=== PATIENT | female | born 1985 | race Caucasian/White ===

== ENCOUNTER 2019-02-27 01:28 | Emergency (ER) | payer MEDICAID ==
[~2019-02-27] VITALS: Ht 162.6 cm; Wt 49.0 kg
[2019-02-27 01:36] VITALS: BP 118/79
--- NOTE | 2019-02-27 01:39 | NUR ---
PT AMBULATED TO BED
[2019-02-27] MEDS ORDERED: CEPHALEXIN 500 MG CAP PO ONE (01:45)
[2019-02-27] MEDS ORDERED: SULFAMETH/TRIMETH DS 800/160MG 1 TAB PO ONE (01:45)
[2019-02-27] MEDS ORDERED: IBUPROFEN 800 MG TAB PO ONE (01:45)
[2019-02-27] MEDS ORDERED: LIDOCAINE/EPI 1% 1:100000 20 ML VIAL INJ ONE (01:45)
--- NOTE | 2019-02-27 01:45 | NUR ---
33 YO F BIB SELF FROM STREET PRESENTS TO ED C/O LARGE ABSCESSES TO BILATERAL UPPER EXTREMETIES FROM INJECTING METH. PT STATES SHE NOTICED THE [facility]TH[facility] X 2 WEEKS AGO AND THEY HAVE GOTTEN PROGRESSIVELY MORE PAINFUL AND LARGER. LARGE, FIRM ABSCESS NOTED TO BILATERAL ANTECUBITAL REGIONS. REDNESS, NO DRAINAGE NOTED. PT DENIES FEVER/CHILLS, N/V. PT STATES SHE HAS BEEN USING FRIEND'S ABX AND [facility]. -- PT AWAKE, A/O X 4, CALM, COOPERATIVE. ANSWERING QUESTIONS APPROPRIATELY. BEHAVIOR AGE APPROPRIATE. -- SKIN PINK, WARM, DRY. BREATHING EVEN, UNLABORED. PMH-- DENIES
--- NOTE | 2019-02-27 02:10 | NUR ---
DR. CANTU PERFORMING INCISION AND DRAINAGE PROCEDURE AT BEDSIDE.
--- NOTE | 2019-02-27 02:55 | NUR ---
Patient given written and verbal discharge instructions and verbalizes understanding. Given copies of tests performed during visit. Patient is awake, alert and oriented. Ambulatory with steady gait. Refuses offer of assisted placement. Given list of available shelters in surrounding areas. Food packet provided.
== END 2019-02-27 02:55 | disposition home or self-care (01) ==
LOC: MED 01:28
DX: L02.414 Cutaneous abscess of left upper limb (principal); L02.413 Cutaneous abscess of right upper limb; F15.10 Other stimulant abuse, uncomplicated; Z59.0 Homelessness
CPT/HCPCS: 10061; 99284; J2001

== ENCOUNTER 2019-02-28 21:50 | Emergency (ER) | payer MEDICAID ==
[~2019-02-28] VITALS: Ht 162.6 cm; Wt 47.6 kg
[2019-02-28 22:00] VITALS: BP 104/73
--- NOTE | 2019-02-28 22:03 | NUR ---
TO LOBBY A/W BED , AMBULATORY
--- NOTE | 2019-02-28 22:21 | NUR ---
PT AMBULATED TO BED #11
--- NOTE | 2019-02-28 22:23 | NUR ---
PT CAME IN TO ER WITH C/O WOUND CHECK ON BOTH ARMS. PT HAD AN I & D TO BILATERAL ARM DUE TO ABSCESS 2 DAYS AGO. PT IS ALERT AND ORIENTED X4. DENIES ANY PREVIOUS MEDICAL HX AND OR ALLERGIES. ER MD MADE AWARE OF STATUS. SAFETY MEASURES IN PLACE.
--- NOTE | 2019-02-28 22:30 | NUR ---
EMT AT BEDSIDE UNWRAPPED GAUZE FROM BOTH EXTREMITIES. INCISIONS X3 FROM I&D ON LEFT ARM AND INCISION X 1 FROM I&D ON RIGHT ARM. NO BLEEDING OR DISCHARGE NOTED.
--- NOTE | 2019-02-28 23:00 | NUR ---
EMT AT BEDSIDE REWRAPPING BILATERAL INCISIONS WITH NONADHERENT DRESSING AND GAUZE
[2019-02-28 23:06] VITALS: BP 104/73
--- NOTE | 2019-02-28 23:06 | NUR ---
Patient discharged with v/s stable. Written and verbal after care instructions given and explained. Patient verbalized understanding. Ambulatory with steady gait. All questions addressed prior to discharge. Advised to follow up with PMD.
== END 2019-02-28 23:06 | disposition home or self-care (01) ==
LOC: MED 21:50
DX: Z48.01 Encounter for change or removal of surgical wound dressing (principal); Z59.0 Homelessness
CPT/HCPCS: 99282

== ENCOUNTER 2019-09-08 23:15 | Emergency (ER) | payer SELFPAY ==
[~2019-09-08] VITALS: Ht 165.1 cm; Wt 47.2 kg
[2019-09-08 23:19] VITALS: BP 113/77
[2019-09-09 00:29] VITALS: BP 110/75
== END 2019-09-09 00:29 | disposition home or self-care (01) ==
LOC: MED 23:15
DX: L02.01 Cutaneous abscess of face (principal); Z98.890 Other specified postprocedural states
CPT/HCPCS: 99283